=== PATIENT | male | born 1980 | race African-American/Black ===

== ENCOUNTER 2018-02-06 04:25 | Emergency (ER) | payer SELFPAY ==
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
[2018-02-06 06:01] VITALS: BMI 26.4
[2018-02-06 06:07] LABS: BASO % 0.3 % (0-2.0); EOS % 0.1 % (0-4.5); HEMATOCRIT 39.1 % (35.4-49); HEMOGLOBIN 12.9 GM/dL (11.7-16.9); LYMPH % 5.5 % (8-40); MCH 28.9 pg (25.7-33.7); MEAN CELL VOLUME 87.5 fl (80-96); MEAN PLT VOLUME 8.7 fl (7.5-11.1); MONO % 6.9 % (3.8-10.2); NEUT % 87.2 % (42.8-82.8); PLATELET COUNT 210 K/MM3 (134-434); RBC 4.47 M/mm3 (4.00-5.60); RDW 13.9 % (11.9-15.9); WHITE BLOOD COUNT 20.6 K/mm3 (4.0-10.0)
[2018-02-06] MEDS ORDERED: AMPICILLIN NA/SULBACTAM NA 3 GM in SODIUM CHLORIDE 100 ML IVPB ONE (06:09)
[2018-02-06] MEDS ORDERED: LIDOCAINE 2%/EPINEPHRINE 1:100000 (50 ML MD VIAL) INF ONE (06:15)
[2018-02-06] MEDS ORDERED: LIDOCAINE 1%/EPI 1:100000 (20 ML MULTI DOSE VIAL) ONE (06:16)
[2018-02-06 06:43] LABS: ALBUMIN 3.6 g/dl (3.4-5.0); ANION GAP 12 MMOL/L (8-16); BILIRUBIN,TOTAL 0.2 mg/dL (0.2-1.0); BLOOD UREA NITROGEN 16 mg/dL (7-18); CALCIUM 8.4 mg/dL (8.5-10.1); CHLORIDE 110 mmol/L (98-107); CO2 22 mmol/L (21-32); CREATININE 1.4 mg/dL (0.7-1.3); GLUCOSE,RANDOM 104 mg/dL (74-106); POTASSIUM 3.7 mmol/L (3.5-5.1); SGOT/AST 30 U/L (15-37); SGPT/ALT 36 U/L (12-78); SODIUM 144 mmol/L (136-145)
[2018-02-06 06:44] LABS: ALK PHOS 51 U/L (45-117)
[2018-02-06] MEDS ORDERED: DIPHTH,PERTUSS(ACELL),TET 0.5 ML DISP.SYRIN IM ONE (07:23)
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
[2018-02-06 10:37] LABS: COCAINE, UR NEGATIVE ng/ml (CUTOFF=300); METHADONE, UR NEGATIVE ng/ml (CUTOFF=300); OPIATES, URI NEGATIVE ng/ml (CUTOFF=300); PHENCYCLIDINE,URINE NEGATIVE ng/ml (CUTOFF=25); URINE AMPHETAMINES NEGATIVE ng/ml (CUTOFF=500); URINE BARBITURATES NEGATIVE ng/ml (CUTOFF=200); URINE BENZODIAZEPINES NEGATIVE ng/ml (CUTOFF=200)
[2018-02-06 10:59] VITALS: BP 120/72; PULSE 78; TEMP 98.6
== END 2018-02-06 10:58 | disposition home or self-care (01) ==
LOC: JER 04:25
PROC: 3E0234Z Introduction of Serum, Toxoid and Vaccine into Muscle, Percutaneous Approach (ICD-10-PCS; principal; 2018-02-06)
PROC: 3E03329 Introduction of Other Anti-infective into Peripheral Vein, Percutaneous Approach (ICD-10-PCS; 2018-02-06)
PROC: 0JQG0ZZ Repair Right Lower Arm Subcutaneous Tissue and Fascia, Open Approach (ICD-10-PCS; 2018-02-06)
DX: S09.8XXA Other specified injuries of head, initial encounter (principal); S51.811A Laceration without foreign body of right forearm, initial encounter; S61.511A Laceration without foreign body of right wrist, initial encounter; S61.011A Laceration without foreign body of right thumb without damage to nail, initial encounter; S00.83XA Contusion of other part of head, initial encounter; F10.10 Alcohol abuse, uncomplicated; Y90.5 Blood alcohol level of 100-119 mg/100 ml; Y04.2XXA Assault by strike against or bumped into by another person, initial encounter; X99.1XXA Assault by knife, initial encounter; Y93.89 Activity, other specified; Y92.414 Local residential or business street as the place of occurrence of the external cause; Y99.8 Other external cause status; Y07.9 Unspecified perpetrator of maltreatment and neglect
CPT/HCPCS: 36415; 70450-TC; 70486-TC; 71045-TC-FY; 72125-TC; 80053; 80307; 85025; 90715; 99285-25

== ENCOUNTER 2018-02-12 16:26 | Emergency (ER) | payer OTHER ==
--- NOTE | 2018-02-12 16:35 | PDOC ---
Rapid Medical Evaluation Chief Complaint: Suture/Staple Removal (other) Time Seen by Provider: 02/12/18 16:33 Medical Evaluation: Allergies Allergy/AdvReac Type Severity Reaction Status Date / Time No Known Allergies Allergy Verified 02/06/18 06:12 02/12/18 16:33 coming in for suture removal. PE; suture site clean dry and intect A; suture removal P: patient to fast track for further management of care. Discharge Disposition - Diagnosis Visit for suture removal - Referrals - Patient Instructions - Post Discharge Activity
[2018-02-12 16:39] VITALS: BP 113/69; PULSE 79; TEMP 98.6; BMI 25.1
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
== END 2018-02-12 17:43 | disposition home or self-care (01) ==
LOC: JERFT 16:26
DX: Z48.817 Encounter for surgical aftercare following surgery on the skin and subcutaneous tissue (principal); Z48.02 Encounter for removal of sutures
CPT/HCPCS: 99281-25

== ENCOUNTER 2022-03-14 06:07 | Day surgery (SDC) | payer OTHER ==
[2022-03-11 10:31] VITALS: BMI 26.4
[2022-03-14] MEDS ORDERED: DEXAMETHASONE SOD PHOSPHATE 10 MG/1 ML VIAL ONE (07:24)
[2022-03-14] MEDS ORDERED: MIDAZOLAM HCL 2 MG/2 ML SINGLE DOSE VIAL ONE ×2 (07:24→12:14)
[2022-03-14] MEDS ORDERED: ROPIVACAINE HCL 0.5% 30ML VIAL ONE (07:24)
[2022-03-14] MEDS ORDERED: PROPOFOL 40 ML ONE (07:36)
[2022-03-14] MEDS ORDERED: SUCCINYLCHOLINE CHLORIDE 200 MG/10 ML SYRINGE ONE (07:36)
[2022-03-14] MEDS ORDERED: VANCOMYCIN 1,000 MG VIAL (RESTRICTED TO ID ONLY) ONE ×2 (07:48→11:27)
[2022-03-14] MEDS ORDERED: ROCURONIUM BROMIDE 50 MG/5 ML SYRINGE ONE ×2 (08:00→10:25)
[2022-03-14] MEDS ORDERED: DEXAMETHASONE SOD PHOSPHATE 4 MG/1 ML VIAL ONE (08:14)
[2022-03-14] MEDS ORDERED: ONDANSETRON 4 MG/2 ML VIAL ONE ×2 (08:14→11:57)
[2022-03-14] MEDS ORDERED: ceFAZolin SODIUM 1 GM VIAL ONE ×2 (08:14→11:57)
[2022-03-14] MEDS ORDERED: HYDROmorphone HCL/PF 1 MG/ML VIAL ONE ×2 (08:36→10:04)
[2022-03-14] MEDS ORDERED: TRANEXAMIC ACID 1000 MG/10 ML VIAL ONE (11:49)
[2022-03-14] MEDS ORDERED: ONDANSETRON 4 MG/2 ML VIAL IVPUSH PRN (12:43)
[2022-03-14] MEDS ORDERED: ACETAMINOPHEN 1000 MG/100 ML BAG IVPB ONE (12:44)
[2022-03-14] MEDS ORDERED: oxyCODONE HCL 5 MG TABLET PO PRN (12:44)
[2022-03-14] MEDS ORDERED: FENTANYL CITRATE/PF 50 MCG/ML VIAL ONE (13:39)
[2022-03-14] MEDS ORDERED: KETOROLAC TROMETHAMINE 30 MG/1 ML VIAL IVPUSH SCH ×2 (15:00→19:00)
[2022-03-14] MEDS ORDERED: SODIUM CHLORIDE 1,000 ML IV SCH (17:15)
[2022-03-14] MEDS: oxyCODONE HCL 5 MG TABLET PO PRN (18:19)
[2022-03-14] MEDS: CEFAZOLIN SODIUM 2 GM in DEXTROSE 5%-WATER 100 ML IVPB SCH (21:03)
[2022-03-14] MEDS: ACETAMINOPHEN 500 MG TABLET (FP) PO SCH (21:03)
[2022-03-14] MEDS: oxyCODONE HCL 10 MG SUSTAINED ACTING TABLET PO SCH (22:04)
[2022-03-15] MEDS: CEFAZOLIN SODIUM 2 GM in DEXTROSE 5%-WATER 100 ML IVPB SCH (03:00)
[2022-03-15] MEDS: oxyCODONE HCL 5 MG TABLET PO PRN ×2 (03:03→06:28)
[2022-03-15 06:12] VITALS: BP 110/65
[2022-03-15] MEDS: ACETAMINOPHEN 500 MG TABLET (FP) PO SCH ×3 (06:27→12:42)
[2022-03-15 09:27] VITALS: PULSE 69; RESP 18; TEMP 98.6
[2022-03-15] MEDS: oxyCODONE HCL 10 MG SUSTAINED ACTING TABLET PO SCH (09:50)
[2022-03-15] MEDS ORDERED: ASPIRIN 325 MG TABLET PO SCH (10:00)
== END 2022-03-15 13:00 | disposition home or self-care (01) ==
LOC: FASU 06:07 → FASUSAT 06:07 → FM/S 15:18 → FASUSAT 03-15 13:00
PROVIDERS: ATTEND Orthopaedic Surgery
PROC: 0RQK0ZZ Repair Left Shoulder Joint, Open Approach (ICD-10-PCS; principal; 2022-03-14 08:34)
DX: M24.412 Recurrent dislocation, left shoulder (principal); M24.112 Other articular cartilage disorders, left shoulder; M65.812 Other synovitis and tenosynovitis, left shoulder; S42.292A Other displaced fracture of upper end of left humerus, initial encounter for closed fracture; X58.XXXA Exposure to other specified factors, initial encounter; Y93.9 Activity, unspecified; Y92.9 Unspecified place or not applicable
CPT/HCPCS: 23460; C1713; 71045-TC-FY; 73030-TC-LT-FY; 82962; 94760; C1889; J1100

== ENCOUNTER 2022-12-08 07:37 | Day surgery (SDC) | payer OTHER ==
[2022-12-04 12:04] VITALS: BMI 28.3
[2022-12-08] MEDS ORDERED: BUPIVACAINE HCL/EPINEPHRINE/PF 30 ML VIAL IJ ONE (08:09)
[2022-12-08] MEDS ORDERED: FENTANYL CITRATE/PF 50 MCG/ML VIAL ONE ×2 (08:45→12:57)
[2022-12-08] MEDS ORDERED: MIDAZOLAM HCL 2 MG/2 ML SINGLE DOSE VIAL ONE (08:45)
[2022-12-08] MEDS ORDERED: DEXAMETHASONE SOD PHOSPHATE/PF 10 MG/ML SDV ONE (08:45)
[2022-12-08] MEDS ORDERED: BUPIVACAINE HCL/PF 0.5% (5 MG/ML) 30 ML VIAL IJ ONE (08:45)
[2022-12-08] MEDS ORDERED: EPINEPHrine 1:1,000 1,000 MCG/ML ML ONE (08:45)
[2022-12-08] MEDS ORDERED: ONDANSETRON 4 MG/2 ML VIAL ONE (09:57)
[2022-12-08] MEDS ORDERED: DEXAMETHASONE SOD PHOSPHATE 4 MG/1 ML VIAL ONE (09:57)
[2022-12-08] MEDS ORDERED: ceFAZolin SODIUM 1 GM VIAL ONE (09:57)
[2022-12-08] MEDS ORDERED: PROPOFOL 20 ML ONE ×7 (10:00→12:13)
[2022-12-08] MEDS ORDERED: TRANEXAMIC ACID 1000 MG/10 ML VIAL ONE (11:52)
[2022-12-08] MEDS ORDERED: VANCOMYCIN 1,000 MG VIAL (RESTRICTED TO ID ONLY) ONE (11:55)
[2022-12-08] MEDS ORDERED: ACETAMINOPHEN INJECTION 100 ML IVPB ONE (12:57)
[2022-12-08] MEDS ORDERED: ACETAMINOPHEN 1000 MG/100 ML BAG IVPB ONE (13:31)
[2022-12-08] MEDS ORDERED: ONDANSETRON 4 MG/2 ML VIAL IVPUSH PRN (13:31)
[2022-12-08] MEDS ORDERED: PROMETHAZINE HCL 25 MG/1 ML VIAL IVPB PRN (13:31)
[2022-12-08] MEDS ORDERED: oxyCODONE HCL 5 MG TABLET PO PRN ×4 (13:31)
[2022-12-08] MEDS ORDERED: LACTATED RINGERS SOLUTION 1,000 ML IV SCH (13:45)
[2022-12-08 14:04] VITALS: RESP 20; TEMP 98
[2022-12-08 14:45] VITALS: BP 124/64; PULSE 65
== END 2022-12-08 14:45 | disposition home or self-care (01) ==
LOC: FASU 07:37
PROVIDERS: ATTEND Orthopaedic Surgery
PROC: 0RPK08Z Removal of Spacer from Left Shoulder Joint, Open Approach (ICD-10-PCS; 2022-12-08)
PROC: 0RBK4ZZ Excision of Left Shoulder Joint, Percutaneous Endoscopic Approach (ICD-10-PCS; principal; 2022-12-08 10:19)
DX: T84.84XA Pain due to internal orthopedic prosthetic devices, implants and grafts, initial encounter (principal); M19.012 Primary osteoarthritis, left shoulder; M65.812 Other synovitis and tenosynovitis, left shoulder; M75.02 Adhesive capsulitis of left shoulder; Y79.3 Surgical instruments, materials and orthopedic devices (including sutures) associated with adverse incidents; Y92.9 Unspecified place or not applicable
CPT/HCPCS: 73030-TC-LT-FY; 94760